=== PATIENT | female | born 1985 | race Caucasian/White ===

== ENCOUNTER → 2018-10-13 | Outpatient (CLI) | payer OTHER ==
[~2018-10-13] MED LIST: ACET-3017 PO; MISO200T59 PO; PREN-127 PO
== END ==
LOC: LAB 09:32
PROVIDERS: ATTEND Student in an Organized Health Care Education/Training Program
DX: O20.0 Threatened abortion (principal)
CPT/HCPCS: 36415; 84702; 86850; 86900; 86901